=== PATIENT | female | born 1965 | race Two or more races ===

== ENCOUNTER 2016-06-21 15:03 | Emergency (ER) | payer MEDICAID ==
[~2016-06-21] VITALS: Ht 149.9 cm; Wt 65.5 kg
[~2016-06-21 15:03] MED LIST: ALBU1.25 NEB; GABA300C10 PO; HYDR25TA6 PO; LORA-446 PO; OMEP-110 PO; OXYGEN; SUMA100T4 PO; TRAZ100T15 PO; [UNRECOGNIZED DRUG - REMARK]
[2016-06-21] MEDS ORDERED: SODIUM CHLORIDE 0.9% 1,000ML IVBOLUS ONE (16:00)
[2016-06-21] MEDS ORDERED: ACETAMINOPHEN 500 MG TABLET PO ONE (16:00)
[2016-06-21] MEDS ORDERED: KETOROLAC 30 MG/1 ML IVPush ONE (16:00)
[2016-06-21] MEDS ORDERED: ONDANSETRON 2MG/ML, 2ML IVPush ONE (16:00)
[2016-06-21] MEDS ORDERED: SODIUM CHLORIDE FLUSH 10ML SYR IVF ONE (16:00)
[2016-06-21] MEDS ORDERED: TOPI200T25 PO (16:02)
[2016-06-21 16:24] LABS: HEMOGLOBIN 14.2 g/dL (11.7-16.4)
[2016-06-21 16:35] LABS: ASPARTATE AMINO TRANSFERASE 12 U/L (15-37); BLOOD UREA NITROGEN 10 mg/dL (7-18)
[2016-06-21 16:51] LABS: RAPID INFLUENZA A Negative (Negative); RAPID INFLUENZA B Negative (Negative)
[2016-06-21 16:53] LABS: IS PT STATUS REG ER OR PRE ER? YES
[2016-06-21] MEDS ORDERED: ONDANSETRON 2MG/ML, 2ML ONE (16:57)
[2016-06-21] MEDS ORDERED: ACETAMINOPHEN 500 MG TABLET ONE (16:57)
[2016-06-21] MEDS ORDERED: KETOROLAC 30 MG/1 ML ONE (16:57)
[2016-06-21 19:02] VITALS: BP 157/95
== END 2016-06-21 19:05 | disposition home or self-care (01) ==
LOC: ED 16:17
DX: J45.909 Unspecified asthma, uncomplicated (principal); B34.9 Viral infection, unspecified; F41.9 Anxiety disorder, unspecified; M79.7 Fibromyalgia; G89.29 Other chronic pain; K58.9 Irritable bowel syndrome, unspecified; G43.909 Migraine, unspecified, not intractable, without status migrainosus; F32.9 Major depressive disorder, single episode, unspecified; Z88.6 Allergy status to analgesic agent; Z88.8 Allergy status to other drugs, medicaments and biological substances
CPT/HCPCS: 36415; 71010; 80053; 84484; 85025; 87400; 93005; 96361; 96374; 96375; 99285; J1885; J2405; J7030

== ENCOUNTER 2016-09-19 18:05 | Emergency (ER) | payer MEDICAID ==
[~2016-09-19] VITALS: Ht 149.9 cm; Wt 68.0 kg
[~2016-09-19 18:05] MED LIST changes: +TOPI200T25 PO
[2016-09-19] MEDS ORDERED: SODIUM CHLORIDE FLUSH 10ML SYR IVF ONE (18:30)
[2016-09-19] MEDS ORDERED: SODIUM CHLORIDE 0.9% 1,000ML IVBOLUS ONE (18:30)
[2016-09-19 18:38] LABS: PATH.CAST-FLAG NOT PRESENT; SPERM-FLAG NOT PRESENT; SRC-FLAG NOT PRESENT; XTAL-FLAG NOT PRESENT; YLC-FLAG NOT PRESENT
[2016-09-19 18:57] LABS: ASPARTATE AMINO TRANSFERASE 10 U/L (15-37); BLOOD UREA NITROGEN 13 mg/dL (7-18)
[2016-09-19] MEDS ORDERED: DICYCLOMINE 10 MG/ML, 2ML IM ONE (20:00)
[2016-09-19 22:35] VITALS: BP 126/80
== END 2016-09-19 22:39 | disposition home or self-care (01) ==
LOC: ED 20:17
DX: N20.1 Calculus of ureter (principal); J02.8 Acute pharyngitis due to other specified organisms; F41.1 Generalized anxiety disorder; B97.89 Other viral agents as the cause of diseases classified elsewhere; I10 Essential (primary) hypertension; Z90.710 Acquired absence of both cervix and uterus
CPT/HCPCS: 36415; 71010; 74020; 74176; 80053; 81001; 85025; 96360; 96372; 99285; J0500; J7030

== ENCOUNTER 2017-01-01 14:14 | Emergency (ER) | payer MEDICAID ==
[~2017-01-01] VITALS: Ht 147.3 cm; Wt 63.5 kg
[2017-01-01] MEDS ORDERED: SODIUM CHLORIDE FLUSH 10ML SYR IVF ONE ×2 (14:30→18:30)
[2017-01-01] MEDS ORDERED: PLEASE ENTER HEIGHT AND WEIGHT MC SCH (15:00)
[2017-01-01 15:08] LABS: HEMATOCRIT 42.8 % (34.6-47.8); HEMOGLOBIN 14.7 g/dL (11.7-16.4); WHITE BLOOD COUNT 5.9 x10^3/uL (3.4-10)
[2017-01-01 15:32] LABS: ASPARTATE AMINO TRANSFERASE 15 U/L (15-37); BLOOD UREA NITROGEN 11 mg/dL (7-18)
[2017-01-01] MEDS ORDERED: HYDROmorphone 1 MG/ML, 1ML IVPush PRN (17:30)
[2017-01-01] MEDS ORDERED: ONDANSETRON 2MG/ML, 2ML IVPush ONE (17:30)
[2017-01-01 17:53] VITALS: BP 136/89
[2017-01-01] MEDS ORDERED: HYDROmorphone 1 MG/ML, 1ML ONE (17:58)
[2017-01-01] MEDS ORDERED: ONDANSETRON 2MG/ML, 2ML ONE (17:59)
[2017-01-01] MEDS ORDERED: SODIUM CHLORIDE 0.9% 1,000ML IV ONE (18:00)
[2017-01-01 18:06] LABS: IS PT STATUS REG ER OR PRE ER? YES
== END 2017-01-01 19:56 | disposition home or self-care (01) ==
LOC: ED 19:47
DX: R10.84 Generalized abdominal pain (principal); I10 Essential (primary) hypertension; G43.909 Migraine, unspecified, not intractable, without status migrainosus; Z90.49 Acquired absence of other specified parts of digestive tract; Z90.710 Acquired absence of both cervix and uterus
CPT/HCPCS: 36415; 76700; 80053; 81003; 83690; 84484; 85025; 85610; 93005; 96361; 96374; 96375; 99285; J1170; J2405; J7030

== ENCOUNTER 2017-04-16 17:45 | Emergency (ER) | payer MEDICAID ==
[~2017-04-16] VITALS: Ht 147.3 cm; Wt 66.8 kg
[2017-04-16 17:47] VITALS: BP 133/91
[2017-04-16] MEDS ORDERED: DIAZEPAM 5 MG TABLET ONE (19:26)
[2017-04-16] MEDS ORDERED: IBUPROFEN 200 MG TABLET ONE (19:27)
[2017-04-16] MEDS ORDERED: DIAZEPAM 5 MG TABLET PO ONE (19:30)
[2017-04-16] MEDS ORDERED: IBUPROFEN 200 MG TABLET PO ONE (19:30)
== END 2017-04-16 20:35 | disposition home or self-care (01) ==
LOC: ED 19:55
DX: S20.212A Contusion of left front wall of thorax, initial encounter (principal); I10 Essential (primary) hypertension; M79.7 Fibromyalgia; Z90.49 Acquired absence of other specified parts of digestive tract; W10.9XXA Fall (on) (from) unspecified stairs and steps, initial encounter; Y93.89 Activity, other specified; Y92.89 Other specified places as the place of occurrence of the external cause; Y99.8 Other external cause status
CPT/HCPCS: 99284

== ENCOUNTER 2017-12-18 12:28 | Emergency (ER) | payer MEDICAID ==
[~2017-12-18] VITALS: Ht 149.9 cm; Wt 67.0 kg
[~2017-12-18 12:28] MED LIST changes: +TRAZ-137 PO; -TRAZ100T15 PO
[2017-12-18 12:33] VITALS: BP 115/80
[2017-12-18] MEDS ORDERED: HYDROcodone/APAP 5/325 TABLET ONE ×2 (12:56→12:58)
[2017-12-18] MEDS ORDERED: HYDROcodone/APAP 5/325 TABLET PO ONE (13:00)
[2017-12-18] MEDS ORDERED: MAALOX/HYOSCYAMINE/LIDOCAINE 45 ML BTL ONE (13:18)
== END 2017-12-18 13:14 | disposition home or self-care (01) ==
LOC: ED 13:00
DX: K02.9 Dental caries, unspecified (principal); K08.89 Other specified disorders of teeth and supporting structures; I10 Essential (primary) hypertension; G43.909 Migraine, unspecified, not intractable, without status migrainosus
CPT/HCPCS: 99283

== ENCOUNTER 2018-01-03 10:30 | Emergency (ER) | payer MEDICAID ==
[~2018-01-03] VITALS: Ht 177.8 cm; Wt 67.6 kg
[2018-01-03 10:32] VITALS: BP 116/84
[2018-01-03] MEDS ORDERED: HYDROcodone/APAP 5/325 TABLET ONE (10:53)
[2018-01-03] MEDS ORDERED: HYDROcodone/APAP 5/325 TABLET PO ONE (11:00)
== END 2018-01-03 11:31 | disposition home or self-care (01) ==
LOC: ED 11:25
DX: K08.89 Other specified disorders of teeth and supporting structures (principal); I10 Essential (primary) hypertension; Z90.710 Acquired absence of both cervix and uterus; Z88.5 Allergy status to narcotic agent; Z88.8 Allergy status to other drugs, medicaments and biological substances
CPT/HCPCS: 99283

== ENCOUNTER 2018-08-28 14:07 | Emergency (ER) | payer MEDICAID ==
[~2018-08-28] VITALS: Ht 154.9 cm; Wt 73.7 kg
[~2018-08-28 14:07] MED LIST changes: +POLY17PO5 PO; +RANI-448 PO
[2018-08-28 15:01] LABS: ALANINE AMINOTRANSFERASE 48 U/L (12-78); ANION GAP 8 mmol/L (5-15); CALCIUM 10.1 mg/dL (8.5-10.1); CHLORIDE 104 mmol/L (98-107); CREATININE 0.96 mg/dL (0.55-1.02)
[2018-08-28 15:06] LABS: ALKALINE PHOSPHATASE 106 U/L (45-117); BILIRUBIN,TOTAL 0.6 mg/dL (0.2-1.0); TOTAL PROTEIN 7.8 g/dL (6.4-8.2)
[2018-08-28 15:11] LABS: BASOPHILS # (AUTO) 0.03 x10^3/uL (0-0.1); BASOPHILS % (AUTO) 0 % (0-1); EOSINOPHILS # (AUTO) 0.04 x10^3/uL (0-0.4); EOSINOPHILS % (AUTO) 1 % (1-7); LYMPHOCYTES # (AUTO) 2.44 x10^3/uL (1-3.4); LYMPHOCYTES % (AUTO) 28 % (22-44); MD NO; MEAN CORPUSCULAR HEMOGLOBIN 29.9 pg (27.0-34.8); MEAN CORPUSCULAR HGB CONC 33.4 g/dL (32.4-35.8); MEAN CORPUSCULAR VOLUME 89.3 fL (80-100); MEAN PLATELET VOLUME 8.3 fL (7.4-10.4); MONOCYTES # (AUTO) 0.53 x10^3/uL (0.2-0.8); MONOCYTES % (AUTO) 6 % (2-9); NEUTROPHILS # (AUTO) 5.61 x10^3/uL (1.8-6.8); NEUTROPHILS % (AUTO) 65 % (42-75); PLATELET COUNT 364 x10^3/uL (130-400); RED BLOOD COUNT 5.51 x10^6/uL (3.82-5.3); RED CELL DISTRIBUTION WIDTH 12.6 % (9.6-15.2)
--- NOTE | 2018-08-28 15:56 | NUR ---
HIGHWAY LANDSCAPE ARCHITECT: PT TO ROOM FROM LOBBY VIA WHEELCHAIR
[2018-08-28 16:22] LABS: MICROSCOPIC AUTO
[2018-08-28 16:23] LABS: CULTURE INDICATED? YES
[2018-08-28] MEDS ORDERED: ONDANSETRON ODT 4 MG ONE (16:28)
[2018-08-28] MEDS ORDERED: CYCLOBENZAPRINE 10 MG TABLET ONE (16:28)
[2018-08-28] MEDS ORDERED: KETOROLAC 30 MG/1 ML ONE (16:28)
[2018-08-28] MEDS ORDERED: KETOROLAC 30 MG/1 ML IM ONE (16:30)
[2018-08-28] MEDS ORDERED: CYCLOBENZAPRINE 10 MG TABLET PO ONE (16:30)
[2018-08-28] MEDS ORDERED: ONDANSETRON ODT 4 MG PO ONE (16:30)
--- NOTE | 2018-08-28 17:01 | NUR ---
RESTING WITH EYES CLOSED AFTER MEDICATEDPER ORDERS
--- NOTE | 2018-08-28 17:48 | NUR ---
PT STATES PAIN IMPROVED SINCE MEDICATED WITH MIDBACK PAIN REMAINING AT 5/10
--- NOTE | 2018-08-28 18:02 | NUR ---
TO CT VIA [facility]
[2018-08-28 18:44] VITALS: BP 136/92
--- NOTE | 2018-08-28 18:45 | NUR ---
PT GIVEN DISCHARGE INSTRUCTIONS AND DISCUSSED USING ZOFRAN AND DRINK WATER IN SMALL AMOUNTS FREQUENTLY. PT AMBULATED TO DISCHARGE WINDOW, STEADY GAIT
== END 2018-08-28 18:47 | disposition home or self-care (01) ==
LOC: ED 17:02
DX: M54.6 Pain in thoracic spine (principal); R11.2 Nausea with vomiting, unspecified; R63.0 Anorexia; I10 Essential (primary) hypertension; F41.1 Generalized anxiety disorder; G43.909 Migraine, unspecified, not intractable, without status migrainosus; Z90.49 Acquired absence of other specified parts of digestive tract; Z90.710 Acquired absence of both cervix and uterus
CPT/HCPCS: 36415; 72072; 74022; 74176; 80053; 81001; 83690; 84703; 85025; 87086; 93005; 96372; 99284; J1885; Q0162